=== PATIENT | female | born 1945 | race Caucasian/White ===

== ENCOUNTER 2021-05-23 12:43 | Outpatient (CLI) | payer MEDICARE, OTHER, SELFPAY ==
--- NOTE | 2021-05-23 13:05 | PC.NURSE ---
PT to room 211 amb. A&Ox3. Infusion plan of care discussed and consent signed. Pt has no questions or complaints. Oriented to room. Call liriano in reach. Reminded to call with needs.
[2021-05-23] MEDS: ACETAMINOPHEN 325 MG TABLET 650 MG PO (13:28)
[2021-05-23] MEDS: diphenhydrAMINE HCl CAP 25 MG CAPSULE PO (13:28)
[2021-05-23 13:29] VITALS: BP 118/58; PULSE 63; RESP 20; TEMP 36.2; O2SAT 98
[2021-05-23] MEDS: FAMOTIDINE 20 MG TABLET PO (13:29)
--- NOTE | 2021-05-23 14:40 | PC.NURSE ---
Pt has no complaints. Discharged to home amb per self.
== END 2021-05-23 12:44 | disposition home or self-care (01) ==
PROVIDERS: PCP Family Medicine; Visit Provider Family Medicine
DX: U07.1 COVID-19 (principal); I10 Essential (primary) hypertension; I25.10 Atherosclerotic heart disease of native coronary artery without angina pectoris
CPT/HCPCS: A9270; M0245; Q0245